=== PATIENT | female | born 1945 | race American Indian/Alaskan Native ===

== ENCOUNTER 2016-06-22 11:22 | Emergency (ER) | payer MEDICARE ==
--- NOTE | 2016-06-22 12:46 | Emergency Department Report ---
Chief Complaint: Abdominal Pain Stated Complaint: SEVERE ABD PAIN/NO BOWEL MVMNT 2 DAYS Time Seen by Provider: 06/22/16 12:41 - HPI History of Present Illness: 70-year-old -[place] female with a past medical history of hypertension and diabetes comes in for complaint of upper abdominal pain suggestive A. She reports that she's been nauseated denies any vomiting reports that her last BM was 3 days ago. She denies any vaginal bleeding discharge vomiting diarrhea or painful urination. She just reports that she is very nauseated and cannot vomit. She reports that her blood sugar this morning was 131. Has a history of lymphoma - Exam Vital Signs: Vital Signs 06/22/16 12:14 Temperature 98.3 F Pulse Rate 96 H Respiratory 18 Rate Blood Pressure 164/104 O2 Sat by Pulse 99 Oximetry Physical Exam: Is alert and oriented 3 Arterial: mildly tachycardic no murmurs S1 and S2 Respiratory: Clear to auscultation bilateral Abdomen: Mild distention decrease bowel sounds tenderness to the epigastric and left upper quadrant MSE screening note: Focused history and physical exam performed. Due to findings the following was ordered: Patient will be evaluated in the main ER abdominal protocol ordered ED Disposition for MSE Condition: Stable Instructions: Abdominal Pain (ED)
[2016-06-22] MEDS ORDERED: ZOFRAN ODT PO ONE (13:11)
[2016-06-22 13:13] LABS: Basophils % (Auto) 0.4 % (0.0-1.8); Eosinophils % (Auto) 1.9 % (0.0-4.3); Hematocrit 44.2 % (30.3-42.9); Hemoglobin 14.6 gm/dl (10.1-14.3); Mean Corpuscular HGB Conc 33 % (30-34); Mean Corpuscular Hemoglobin 30 pg (28-32); Mean Corpuscular Volume 91 fl (79-97); Platelet Count 297 K/mm3 (140-440); Red Blood Count 4.87 M/mm3 (3.65-5.03); Red Cell Distribution Width 13.9 % (13.2-15.2); White Blood Count 7.4 K/mm3 (4.5-11.0)
[2016-06-22 13:34] LABS: Alanine Aminotransferase 10 units/L (7-56); Albumin 4.3 g/dL (3.9-5); Albumin/Globulin Ratio 1.2 %; Alkaline Phosphatase 56 units/L (35-129); Anion Gap 20 mmol/L; Bilirubin,Total 0.5 mg/dL (0.1-1.2); Blood Urea Nitrogen 10 mg/dL (7-17); Calcium 9.7 mg/dL (8.4-10.2); Carbon Dioxide 27 mmol/L (22-30); Chloride 98.5 mmol/L (98-107); Glucose 191 mg/dL (65-100); Lipase 19 units/L (13-60); Potassium 4.2 mmol/L (3.6-5.0); Sodium 141 mmol/L (137-145); Total Protein 7.9 g/dL (6.3-8.2)
[2016-06-22] MEDS ORDERED: PEPCID IV ONE (20:31)
[2016-06-22] MEDS ORDERED: MORPHINE IV ONE (20:31)
[2016-06-22 20:48] LABS: Bilirubin,Urine NEG (Negative); Blood,Urine NEG (Negative); Ketones,Urine TR mg/dL (Negative); Leukocyte Esterase,Urine LG (Negative); Mucus,Urine FEW /HPF; Nitrite,Urine NEG (Negative); Urobilinogen,Urine < 2.0 mg/dL (<2.0)
[2016-06-22] MEDS ORDERED: NACL 0.9% 1000 ML 1,000 ML IV SCH (21:00)
--- NOTE | 2016-06-22 21:01 | Emergency Department Report ---
ED Abdominal Pain HPI - General Chief Complaint: Abdominal Pain Stated Complaint: SEVERE ABD PAIN/NO BOWEL MVMNT 2 DAYS Time Seen by Provider: 06/22/16 12:41 Source: patient Mode of arrival: Ambulatory Limitations: No Limitations - History of Present Illness Initial Comments: 70-year-old female with a past medical history of breast cancer (currently in remission), diabetes, GERD, and hypertension and previous surgical history of hysterectomy presents to the hospital with complaints of abdominal pain and constipation. Patient complains of epigastric pain since yesterday. Pain is sharp, intermittent, rated 8/10 in intensity. Worse with palpation. No alleviating factors. Patient also thinks she is constipated. She has not had a bowel movement in 3 days and had only minimal output after taking a enema. Patient had 3 episodes of vomiting today. No reports of fever, melena, hematochezia, or hematemesis. Although patient has a history of GERD she is not currently on any H2 kevin or PPI. - Related Data Home Medications Medication Instructions Recorded Confirmed Last Taken Atorvastatin (Nf) [Lipitor] 10 mg PO DAILY 09/11/13 06/22/16 03/29/14 Diltiazem HCl [Diltiazem 24Hr ER] 240 mg PO DAILY 09/11/13 06/22/16 03/29/14 Hydrochlorothiazide [HCTZ] 25 mg PO DAILY 09/11/13 06/22/16 03/29/14 Losartan Potassium 100 mg PO DAILY 09/11/13 06/22/16 03/30/14 10:00 Metformin HCl [Metformin] 1,000 mg PO BID 09/11/13 06/22/16 03/29/14 glipiZIDE [Glipizide ER] 10 mg PO DAILY 09/11/13 06/22/16 03/29/14 Aspirin [Aspirin BABY CHEW TAB] 81 mg PO DAILY 03/09/14 06/22/16 03/23/14 Sitagliptin Phosphate [Januvia] 50 mg PO DAILY 06/22/16 06/22/16 Unknown Tamoxifen Citrate 20 mg PO QDAY 06/22/16 06/22/16 Unknown Previous Rx's Medication Instructions Recorded Last Taken Type Lactulose [Cephulac] 20 gm PO QDAY PRN #7 dose 06/22/16 Unknown Rx Nitrofurantoin [place]/M-Cryst 100 mg PO Q12HR #14 capsule 06/22/16 Unknown Rx [Macrobid CAP] Omeprazole Magnesium [PriLOSEC Otc] 20 mg PO QDAY #30 tablet. 06/22/16 Unknown Rx Ondansetron [Zofran Odt] 4 mg PO Q8HR PRN #20 tab.rapdis 06/22/16 Unknown Rx Allergies Allergy/AdvReac Type Severity Reaction Status Date / Time No Known Allergies Allergy Verified 10/14/13 11:32 ED Review of Systems ROS: Stated complaint: SEVERE ABD PAIN/NO BOWEL MVMNT 2 DAYS Other details as noted in HPI Comment: All other systems reviewed and negative Other: Constitutional: No fevers chills Eyes: No eye pain visual changes ENT: No ear pain or throat pain Neck: Denies pain Respiratory: Denies cough wheezing shortness of breath Cardiovascular: Denies chest pain, palpitations, syncope GI: As per HPI : Denies dysuria Musculoskeletal: Denies back pain, joint swelling Skin: Denies rash, lesions, erythema Neurologic: Denies headache, numbness, weakness Psychiatric: Denies suicidal ideation, hallucinations ED Past Medical Hx - Past Medical History Previous Medical History?: Yes Hx Hypertension: Yes (8 YRS; high cholesterol) Hx Diabetes: Yes (PO MEDS 6 YRS SINCE 2007) Hx GERD: Yes Hx Liver Disease: No Hx Renal Disease: No Hx of Cancer: Yes (breast cancer) Hx Sickle Cell Disease: No Hx Seizures: No Hx Asthma: No Hx HIV: No - Surgical History Past Surgical History?: Yes Hx Breast Surgery: Yes (RIGHT) Additional Surgical History: hysterectomy - Social History Smoking Status: Never Smoker Substance Use Type: None - Medications Home Medications: Home Medications Medication Instructions Recorded Confirmed Last Taken Type Atorvastatin (Nf) [Lipitor] 10 mg PO DAILY 09/11/13 06/22/16 03/29/14 History Diltiazem HCl [Diltiazem 24Hr ER] 240 mg PO DAILY 09/11/13 06/22/16 03/29/14 History Hydrochlorothiazide [HCTZ] 25 mg PO DAILY 09/11/13 06/22/16 03/29/14 History Losartan Potassium 100 mg PO DAILY 09/11/13 06/22/16 03/30/14 10:00 History Metformin HCl [Metformin] 1,000 mg PO BID 09/11/13 06/22/16 03/29/14 History glipiZIDE [Glipizide ER] 10 mg PO DAILY 09/11/13 06/22/16 03/29/14 History Aspirin [Aspirin BABY CHEW TAB] 81 mg PO DAILY 03/09/14 06/22/16 03/23/14 History Lactulose [Cephulac] 20 gm PO QDAY PRN #7 dose 06/22/16 Unknown Rx Nitrofurantoin [place]/M-Cryst 100 mg PO Q12HR #14 capsule 06/22/16 Unknown Rx [Macrobid CAP] Omeprazole Magnesium [PriLOSEC Otc] 20 mg PO QDAY #30 tablet. 06/22/16 Unknown Rx Ondansetron [Zofran Odt] 4 mg PO Q8HR PRN #20 tab.rapdis 06/22/16 Unknown Rx Sitagliptin Phosphate [Januvia] 50 mg PO DAILY 06/22/16 06/22/16 Unknown History Tamoxifen Citrate 20 mg PO QDAY 06/22/16 06/22/16 Unknown History ED Physical Exam - General Limitations: No Limitations - Other Other exam information: General: No limitations, patient is alert in no acute distress Head exam: Atraumatic, normocephalic Eyes exam: Normal appearance, pupils equal reactive to light, extraocular movements intact ENT: Moist mucous membrane, normal oropharynx Neck exam: Normal inspection, full range of motion, no meningismus nontender Respiratory exam: Clear to auscultation bilateral, no wheezes, rales, crackles Cardiovascular: Normal rate and rhythm, normal heart sounds Abdomen: Soft, nondistended, right upper quadrant and epigastric tenderness, with normal bowel sounds, no rebound, or guarding Extremity: Full range of motion normal inspection no deformity Back: Normal Inspection, full range of motion, no tenderness Neurologic: Alert, oriented x3, cranial nerves intact, no motor or sensory deficit Psychiatric: normal affect, normal mood Skin: Warm, dry, intact ED Course Vital Signs 06/22/16 06/22/16 06/22/16 12:14 19:52 20:00 Temperature 98.3 F Pulse Rate 96 H Respiratory 18 Rate Blood Pressure 164/104 143/90 O2 Sat by Pulse 99 97 98 Oximetry 06/22/16 06/22/16 06/22/16 20:31 21:00 21:30 Temperature Pulse Rate Respiratory 18 18 Rate Blood Pressure 155/90 O2 Sat by Pulse 100 Oximetry 06/22/16 21:31 Temperature Pulse Rate Respiratory 18 Rate Blood Pressure O2 Sat by Pulse 100 Oximetry - Reevaluation(s) Reevaluation #1: 06/22/16 21:00 Morphine, and normal saline ordered awaiting ultrasound ED Medical Decision Making - Lab Data Result diagrams: 06/22/16 13:04 06/22/16 13:04 Lab Results 06/22/16 06/22/16 06/22/16 Range/Units 13:04 13:04 20:00 WBC 7.4 (4.5-11.0) K/mm3 RBC 4.87 (3.65-5.03) M/mm3 Hgb 14.6 H (10.1-14.3) gm/dl Hct 44.2 H (30.3-42.9) % MCV 91 (79-97) fl MCH 30 (28-32) pg MCHC 33 (30-34) % RDW 13.9 (13.2-15.2) % Plt Count 297 (140-440) K/mm3 Lymph % (Auto) 26.9 (13.4-35.0) % [place] % (Auto) 6.5 (0.0-7.3) % Eos % (Auto) 1.9 (0.0-4.3) % Baso % (Auto) 0.4 (0.0-1.8) % Lymph # 2.0 (1.2-5.4) K/mm3 [place] # 0.5 (0.0-0.8) K/mm3 Eos # 0.1 (0.0-0.4) K/mm3 Baso # 0.0 (0.0-0.1) K/mm3 Seg Neutrophils % 64.3 (40.0-70.0) % Seg Neutrophils # 4.8 (1.8-7.7) K/mm3 Sodium 141 (137-145) mmol/L Potassium 4.2 (3.6-5.0) mmol/L Chloride 98.5 (98-107) mmol/L Carbon Dioxide 27 (22-30) mmol/L Anion Gap 20 mmol/L BUN 10 (7-17) mg/dL Creatinine 0.8 (0.7-1.2) mg/dL Estimated GFR > 60 ml/min BUN/Creatinine Ratio 12.50 % Glucose 191 H (65-100) mg/dL Calcium 9.7 (8.4-10.2) mg/dL Total Bilirubin 0.5 (0.1-1.2) mg/dL AST 14 (5-40) units/L ALT 10 (7-56) units/L Alkaline Phosphatase 56 (35-129) units/L Total Protein 7.9 (6.3-8.2) g/dL Albumin 4.3 (3.9-5) g/dL Albumin/Globulin Ratio 1.2 % Lipase 19 (13-60) units/L Urine Color Yellow (Yellow) Urine Turbidity Cloudy (Clear) Urine pH 6.0 (5.0-7.0) Ur Specific Levasy 1.014 (1.003-1.030) Urine Protein 30 mg/dl (Negative) mg/dL Urine Glucose (UA) >=500 (Negative) mg/dL Urine Ketones Tr (Negative) mg/dL Urine Blood Neg (Negative) Urine Nitrite Neg (Negative) Urine Bilirubin Neg (Negative) Urine Urobilinogen < 2.0 (<2.0) mg/dL Ur Leukocyte Esterase Lg (Negative) Urine WBC (Auto) 58.0 H (0.0-6.0) /HPF Urine RBC (Auto) 6.0 (0.0-6.0) /HPF U Epithel Cells (Auto) 19.0 H (0-13.0) /HPF Urine Mucus Few /HPF - Radiology Data Radiology results: report reviewed (abdominal ultrasound: Hepatic steatosis otherwise unremarkable right upper quadrant ultrasound), image reviewed ( abdominal x-ray series: No obstruction positive constipation) - Medical Decision Making Patient has large leuk esterase on UA however, large epithelial cells as well. This represent a contaminant. She'll be treated empirically with Macrobid. She 'll be discharged home with treatment for GERD and constipation. Patient did have a bowel movement in the ED after treatment - Differential Diagnosis Gastritis, GERD, biliary colic, constipation, obstruction Critical Care Time: No Critical care attestation.: If time is entered above; I have spent that time in minutes in the direct care of this critically ill patient, excluding procedure time. ED Disposition Clinical Impression: Constipation, Vomiting, Urine leukocytes increased Disposition: DISCHARGED TO HOME OR SELFCARE Is pt being admited?: No Does the pt Need Aspirin: No Condition: Stable Instructions: Constipation (ED), Urinary Tract Infection in Women (ED), Acute Nausea and Vomiting (ED) Additional Instructions: Take Tylenol as needed for pain. Take the other medications as prescribed. Return if symptoms worsen. Follow-up with your doctor Prescriptions: Lactulose [Cephulac] 20 gm PO QDAY PRN #7 dose PRN Reason: Constipation Nitrofurantoin [place]/M-Cryst [Macrobid CAP] 100 mg PO Q12HR #14 capsule Omeprazole Magnesium [PriLOSEC Otc] 20 mg PO QDAY #30 tablet. Ondansetron [Zofran Odt] 4 mg PO Q8HR PRN #20 tab.rapdis PRN Reason: Nausea And Vomiting Referrals: SONDRA PALMER MD [Primary Care Provider] - 3-5 Days Time of Disposition: 23:30
[2016-06-22] MEDS ORDERED: CEPHULAC PO ONE (22:33)
[2016-06-22] MEDS ORDERED: MACROBID PO ONE (23:27)
[2016-06-23 00:03] VITALS: BP 146/78
--- NOTE | 2016-06-23 10:03 | XRay Report ---
ABDOMEN TWO VIEWS: History: Abdominal pain, constipation. There is no evidence of free air beneath the diaphragms. The gas pattern within the abdomen is unremarkable. There is no evidence of bowel dilatation, significant air-fluid levels, or masses. The psoas margins are adequately visualized. IMPRESSION: Unremarkable abdomen.
--- NOTE | 2016-06-25 18:15 | Ultrasound Report ---
FINAL REPORT EXAM: US ABDOMEN LIMITED HISTORY: ruq pain, epigastric pain COMPARISONS: None FINDINGS: Grayscale and color Doppler ultrasound evaluation of the right upper abdomen Liver is normal in size and contour. Hepatic parenchymal echogenicity is diffusely increased with corresponding decreased posterior capsular definition. No parenchymal lesion identified. No intra or extrahepatic biliary ductal dilatation. The common duct measures approximately 5 millimeters in caliber. No cholelithiasis. Gallbladder wall measures approximately 2-3 millimeters. Imaged portion of the pancreatic head is sonographically unremarkable. The remainder of the pancreas is not well seen secondary to overlying bowel gas. No abdominal ascites or free fluid in Morison's pouch. The right kidney measures up to 9 cm in length and is without hydronephrosis or echogenic shadowing foci to suggest nephrolithiasis. The imaged portion of the aorta is sonographically unremarkable. IMPRESSION: Hepatic steatosis. Otherwise unremarkable right upper quadrant ultrasound. Consider additional imaging including CT as warranted.
== END 2016-06-22 23:57 | disposition home or self-care (01) ==
LOC: ED 11:22
DX: R82.99 Other abnormal findings in urine (principal); R11.10 Vomiting, unspecified; K59.00 Constipation, unspecified; I10 Essential (primary) hypertension; E11.9 Type 2 diabetes mellitus without complications; K21.9 Gastro-esophageal reflux disease without esophagitis; Z85.3 Personal history of malignant neoplasm of breast; Z79.82 Long term (current) use of aspirin
CPT/HCPCS: 36415; 74020; 76705; 80053; 81001; 83690; 85025; 96361; 96374; 96375; 99284; J2270; J7030; Q0162

== ENCOUNTER 2016-10-02 15:06 | Emergency (ER) | payer OTHER, MEDICARE, BC ==
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
[2016-10-02 16:53] LABS: Basophils % (Auto) 0.4 % (0.0-1.8); Hematocrit 41.7 % (30.3-42.9); Hemoglobin 13.6 gm/dl (10.1-14.3); Mean Corpuscular HGB Conc 33 % (30-34); Mean Corpuscular Hemoglobin 30 pg (28-32); Mean Corpuscular Volume 92 fl (79-97); Platelet Count 240 K/mm3 (140-440); Red Blood Count 4.53 M/mm3 (3.65-5.03); Red Cell Distribution Width 13.9 % (13.2-15.2); White Blood Count 12.8 K/mm3 (4.5-11.0)
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
[2016-10-02 17:03] LABS: Anion Gap 22 mmol/L; Blood Urea Nitrogen 10 mg/dL (7-17); Calcium 9.4 mg/dL (8.4-10.2); Carbon Dioxide 23 mmol/L (22-30); Glucose 58 mg/dL (65-100); Sodium 143 mmol/L (137-145)
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
[2016-10-02] MEDS ORDERED: TORADOL IV ONE (20:49)
[2016-10-02 23:30] VITALS: BP 142/78
== END 2016-10-02 23:20 | disposition home or self-care (01) ==
LOC: ED 15:06
DX: S20.219A Contusion of unspecified front wall of thorax, initial encounter (principal); I10 Essential (primary) hypertension; E11.9 Type 2 diabetes mellitus without complications; K21.9 Gastro-esophageal reflux disease without esophagitis; Z98.890 Other specified postprocedural states; V49.9XXA Car occupant (driver) (passenger) injured in unspecified traffic accident, initial encounter; Y93.89 Activity, other specified; Y99.9 Unspecified external cause status; Y92.410 Unspecified street and highway as the place of occurrence of the external cause
CPT/HCPCS: 36415; 70450; 71020; 80048; 84484; 85025; 93005; 93010; 96374; 99285; J1885

== ENCOUNTER 2016-12-13 11:31 | Outpatient (CLI) | payer MEDICARE ==
--- NOTE | 2016-12-13 15:44 | Cat Scan Report ---
CT ABDOMEN AND PELVIS WITHOUT CONTRAST INDICATION: Left-sided abdominal pain. COMPARISON: None similar. FINDINGS: Abdomen and pelvis CT performed following oral contrast only. LUNG BASES: Right breast reconstruction partially imaged. Small density also noted in the left breast medially, axial image 20. Nonspecific distal esophageal wall prominence/thickening, not excluded for gastroesophageal reflux and/or hiatal hernia, amongst others. ABDOMEN: Please note that sensitivity to detect small visceral lesions is limited due to the absence of intravenous contrast. Grossly unremarkable unenhanced liver, spleen, gallbladder, pancreas, adrenals, aorta, IVC and kidneys. No ascites or size significant adenopathy. Opacified GI tract nonobstructive. Normal appendix. Mild to moderate colonic stool/possible constipation. Fat-containing umbilical hernia with a transverse neck of 1.9 cm. PELVIS: Uterus surgically absent. Moderate rectosigmoid stool. Grossly unremarkable urinary bladder. No free fluid or significant adenopathy. Demineralized bones with moderate multilevel spinal degenerative spurring and few vacuum disc phenomena. CONCLUSION: Possible constipation and few other incidental findings, as above. Please correlate. Thank you for the opportunity to participate in this patient's care.
== END 2016-12-13 11:32 | disposition home or self-care (01) ==
LOC: CT 11:31
PROVIDERS: ATTEND Internal Medicine
DX: K42.9 Umbilical hernia without obstruction or gangrene (principal); I10 Essential (primary) hypertension; E11.9 Type 2 diabetes mellitus without complications; E78.00 Pure hypercholesterolemia, unspecified; Z90.710 Acquired absence of both cervix and uterus
CPT/HCPCS: 74176

== ENCOUNTER 2020-11-15 10:08 | Outpatient (CLI) | payer MEDICARE ==
--- NOTE | 2020-11-15 10:54 | Mammography Report ---
LEFT DIGITAL SCREENING MAMMOGRAM WITH CAD INDICATION: Screening mammogram, status post right breast mastectomy. TECHNIQUE: Digital left 2D mammography was obtained in the craniocaudal and mediolateral oblique pro jections. This examination was interpreted with the benefit of Computer-Aided Detection analysis. COMPARISON: 11/13/2019, 11/11/2018, 10/25/2017. FINDINGS: The left breast is almost entirely fatty. No suspicious mass, microcalcifications, or architectural distortion. Suspected mild post reduction c hanges with associated calcifications appear stable. IMPRESSION: No evidence of breast malignancy. Recommend routine screening mammogram in one year. BI-RADS Category 2: Benign. No mammographic evidence of malignancy. Recommend routine screening ma mmography in one year. A "normal" or negative report should not discourage follow up or biopsy of a clinically significant f inding. A written summary of these findings will be mailed to the patient. The patient will be entered into a mammography reporting system which will generate a reminder letter for the patient's next appointmen t at the appropriate interval. The [employer] recommends yearly mammograms starting at age 40 and continuing as l boni as a woman is in good health. Breast MRI is recommended for women with an approximate 20-25% or greater lifetime risk of breast cancer, including women with a strong family history of breast or ova kvng cancer or who have been treated for Hodgkin's disease. Screening Signer Name: Jonny Penny MD Signed: 11/15/2020 10:49 AM Workstation Name: [id number]
== END 2020-11-15 10:09 | disposition home or self-care (01) ==
LOC: SPVWC 10:08
PROVIDERS: ATTEND Surgery
DX: Z12.31 Encounter for screening mammogram for malignant neoplasm of breast (principal)

== ENCOUNTER 2021-12-01 10:24 | Outpatient (CLI) | payer MEDICARE ==
--- NOTE | 2021-12-05 16:40 | Mammography Report ---
DIGITAL SCREENING MAMMOGRAM WITH CAD, 12/01/2021 CLINICAL INFORMATION / INDICATION: Routine screening mammography. Z12.31 HX OF BC TECHNIQUE: Digital left 2D mammography was obtained in the craniocaudal and mediolateral oblique pro jections. This examination was interpreted with the benefit of Computer-Aided Detection analysis. COMPARISON: Prior mammograms 11/15/2020 and 11/13/2019 FINDINGS: Breast Density: The breasts are almost entirely fatty. No dominant mass, suspicious calcifications, or architectural distortion in the left breast. There is stable benign postreduction change seen in the left breast and stable benign appearing calci fications was scattered distribution. There has been no significant change compared with the prior ex aminations. IMPRESSION: No mammographic evidence of malignancy. Follow up recommendation: Routine yearly screening mammogram. BI-RADS Category 2: BENIGN. A "normal" or negative report should not discourage follow up or biopsy of a clinically significant f inding. A written summary of these findings will be mailed to the patient. The patient will be entered into a mammography reporting system which will generate a reminder letter for the patient's next appointmen t at the appropriate interval. The [employer] recommends yearly mammograms starting at age 40 and continuing as l boni as a woman is in good health. Breast MRI is recommended for women with an approximate 20-25% or greater lifetime risk of breast cancer, including women with a strong family history of breast or ova kvng cancer or who have been treated for Hodgkin's disease. Signer Name: Joellen Rodriguez MD Signed: 12/05/2021 4:35 PM Workstation Name: [id number]
== END 2021-12-01 10:25 | disposition home or self-care (01) ==
LOC: MAMMO 10:24
PROVIDERS: ATTEND Surgery
DX: Z12.31 Encounter for screening mammogram for malignant neoplasm of breast (principal)